=== PATIENT | male | born 1960 | race Caucasian/White ===

== ENCOUNTER 2020-05-24 06:31 | Outpatient (REF) | payer OTHER, SELFPAY ==
[2020-05-24 11:44] LABS: Alanine Aminotransferase 23 U/L (0-40); Aspartate Amino Transferase 18 U/L (5-37); Cholesterol 126 mg/dL; HDL Cholesterol 46 mg/dL; LDL Cholesterol Calculated 63 mg/dl; Triglycerides 88 mg/dL
== END 2020-05-24 06:32 | disposition home or self-care (01) ==
LOC: HO.HMGCLDS 06:31
PROVIDERS: PCP Internal Medicine; Visit Provider Internal Medicine Cardiovascular Disease
DX: E78.2 Mixed hyperlipidemia (principal)
CPT/HCPCS: 80061; 84450; 84460

== ENCOUNTER 2023-04-26 09:24 | Outpatient (AMB) | payer OTHER, SELFPAY ==
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
[2023-04-26 10:43] VITALS: BP 120/70; PULSE 66; TEMP 36.6; O2SAT 96
== END 2023-04-26 11:26 | disposition home or self-care (01) ==
PROVIDERS: PCP Internal Medicine; Visit Provider Physician Assistant Medical
DX: S49.91XA Unspecified injury of right shoulder and upper arm, initial encounter (principal)
CPT/HCPCS: 99213

== ENCOUNTER 2023-04-26 10:59 | Outpatient (REF) | payer OTHER, SELFPAY ==
--- NOTE | ~2023-04-26 | XR_ITS ---
EXAMINATION: XR SHOULDER, RIGHT CLINICAL INFORMATION: Right shoulder pain. COMPARISON: None available. TECHNIQUE: AP external rotation, Grashey, scapular Y views of the right shoulder. FINDINGS: Decreased bone mineralization. Hypertrophic changes of the acromioclavicular joint. There is loss of the subacromial joint space. Superior subluxation of the humeral head relative to the glenoid with mild glenohumeral joint space narrowing and marginal osteophytes. No abnormal soft tissue calcifications. No displaced fracture or dislocation. XR/XR shoulder RT min 2V IMPRESSION: Subacromial joint space narrowing suggestive of rotator cuff pathology. Mild osteoarthritis of the right shoulder.
== END 2023-04-26 11:00 | disposition home or self-care (01) ==
LOC: HO.HMGCX 10:59
PROVIDERS: Visit Provider Physician Assistant Medical
DX: M25.511 Pain in right shoulder (principal)
CPT/HCPCS: 73030

== ENCOUNTER 2023-05-08 13:44 | Outpatient (AMB) | payer OTHER, SELFPAY ==
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
[2023-05-08 13:50] VITALS: BMI 27.2
== END 2023-05-08 14:13 | disposition home or self-care (01) ==
PROVIDERS: PCP Internal Medicine; Visit Provider Orthopaedic Surgery
DX: M25.511 Pain in right shoulder (principal)
CPT/HCPCS: 99202

== ENCOUNTER → 2023-05-08 13:44 | Outpatient (BNVA) | payer OTHER, SELFPAY | PROVIDERS: PCP Internal Medicine; Visit Provider Orthopaedic Surgery ==

== ENCOUNTER 2024-07-15 06:50 | Outpatient (REF) | payer OTHER, SELFPAY ==
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
--- OUTSIDE RECORDS SUMMARY | 2024-07-15 06:57 | XMS_ITS | Encounter Summary ---
Author Organization [facility] Address [address] [place] [address] Care Team Providers Care [employer] Weaver Name Role Phone Leo Garcia MD Primary Care Provider [phone] Reason for Referral * Imaging (Routine) - Pending Review Specialty Diagnoses / Procedures Referred By Elvira tejeda Referred To Contact Cardiology Diagnoses Hyperlipidemia, unspecified hyperlipidemia type Coronary artery disease involving [place] river coronary artery of [place] river heart, unspecified whether angina present Ischemic cardiomyopathy Procedures Transthoracic echocardiogram (TTE) complete with PRN contrast, bubble, strain, and 3D order panel VT TTE W 2D IMAGE COMPLETE W DOPPLER ECHO & COLOR FLOW DOPPLER ECHO VT FAYE 2D COMPLETE W/CONTRAST OR W & WO CONTRAST WITH DOPPLER Thien Stein NP [address] [place] [address] [facility] Referral ID Status Reason Start Date Expiration Date V isits Requested Visits Authorized [id number] Pending Review 07/14/2024 07/14/2025 1 1 Reason for Visit * Reason Comments Follow-up Encounter Details Date Type Department Care Team (Late st Contact Info) Description 07/14/2024 11:10 AM EST Office Visit [facility] [address] [facility] [address] [place] [address] Thien Stein NP [address] [place] [address] Hyperlipidemia, unspecified hyperlipidemia type (Primary Dx); Coronary artery disease involving color[place] river coronary artery of [place] river heart, unspecified whether angina present; Ischemic cardiomyopathy; HFrEF (heart failure with reduced ejection fraction) ([facility]) Social History Tobacco Use Types Packs/Day Years [...] file Not on file Not on file documented as of this encounter Last Filed Vital Signs Vital Sign Reading [...] Mass Index 27.03 07/14/2024 11:09 AM EST documented in this encounter Progress Notes * Thien Stein NP - 07/14/2024 11:10 AM ESTAssociated Problem(s): Hyperlipidemia Continue on current dose of rosuvastatin 40 [...] bubble, strain, and 3D order panel; Future * Thien Stein NP - 07/14/2024 11:10 AM ESTAssociated Problem(s): CAD (coronary artery disease) Continue on current rosuvastatin 40 mg at bedtime as well as aspirin 81 mg daily. Patient is also on metoprolol. Educated the patient to adhere to a cardiac healthy diet. Instructed to call 911 or goto the emergency room should the patient begin to experience chest pain or pressure lasting greaterthan 10 minutes does not resolve with rest. Orders: ECG 12 lead Basic metabolic panel; Future CBC and differential; Future Lipid panel with reflex to direct LDL; Future Transthoracic echocardiogram (TTE) complete with PRN contrast, bubble, strain, and 3D order panel; Future * Thien Stein NP - 07/14/2024 11:10 AM ESTAssociated Problem(s): Ischemic cardiomyopathy Will update echocardiogram. Orders: Basic metabolic panel; Future CBC and differential; Future Lipid panel with reflex to direct LDL; Future Transthoracic echocardiogram (TTE) complete with PRN contrast, bubble, strain, and 3D order panel; Future * Thien Stein NP - 07/14/2024 11:10 AM EST Images from the original note were not included. [facility] PRIMARY NODULIZER: Sulma Khalil MD PCP: Leo Garcia MD HPI: Zev Carlos is a 64 y.o. old male who presents for cardiac follow-up of: 1. HFrEF 2. CAD 3. Hypertension 4. Hyperlipidemia He also has a past medical history significant for hypothyroidism. He is an avid biker. Months bikes twice a week 12 to 15 miles each session. At previous appointment he said that when he [place], he initially struggles a little bit of some fatigue and shortness of breath but is able to work through it. He goes to the gym the other 2 days of the week. The patient presents today for routine cardiac follow-up. This is the first patient visit to the office in about 1.5 years. He is still very active during the day, he reports that he does mountain biking almost every day, often 10 to 20 miles. He does also have a road bike that he utilizes and takes his dog for walks during the day. He denies any chest discomfort, or shortness of breath, but he does feel that it takes him a little while to get going when he first starts exercising. He does report that this last only a few minutes and he is able to push through. Denies any falls. Denies any recent hospitalizations for cardiac reasons. Of note he has not had a PCP for the past several years and so has not had labs drawn in over a year. Denies chest pain, pressure, shortness of breath, dyspnea exertion, dizziness, lightheadedness, presyncope or syncope. The patient denies palpitations, peripheral edema, abdominal distention, PND or orthopnea. There have been no falls or cardiac related hospitalizations since the last office visit. ACTIVE MEDICATIONS: Outpatient Medications Marked as Taking for the 07/14/24 encounter (Office Visit) with Thien Stein NP Medication Sig Dispense Refill aspirin 81 mg EC tablet Take 81 mg by mouth daily. BIOFLAVONOID, LEMON, BULK, MISC 1,000 mg 2 (two) times a day. coenzyme Q-10 10 mg capsule Take by mouth. radhames, Zingiber officinalis, 250 mg capsule Take 1 tablet by mouth 1 (one) time each day. glucosamine/chondro villatoro A/C/Mn (GLUCOSAMINE-CHONDROITIN COMPLX ORAL) Take by mouth. losartan (COZAAR) 25 mg tablet TAKE 1 TABLET BY MOUTH EVERY DAY 90 tablet 1 lysine 1,000 mg tablet Take 1 tablet (1,000 mg total) by mouth 3 (three) times a day. metoprolol tartrate (LOPRESSOR) 25 mg tablet Take 1 tablet (25 mg total) by mouth 2 (two) times a day. multivitamin (MULTIPLE VITAMINS ORAL) Take by mouth. rosuvastatin (CRESTOR) 40 mg tablet TAKE 1/2 TABLET (20 MG TOTAL) BY MOUTH EVERY DAY. 45 tablet 1 turmeric root extract 500 mg capsule Take 1 tablet by mouth 1 (one) time each day. VINPOCETINE, BULK, MISC 60 mg 2 (two) times a day. vitamin E, dl,tocopheryl acet, (vitamin E, dl, acetate,) 180 mg (400 unit) capsule Take 1 capsule (400 Units total) by mouth 1 (one) time each day. PAST MEDICAL HISTORY: Patient Active Problem List Diagnosis Atypical squamoproliferative skin lesion CAD (coronary artery disease) Gout Hernia, inguinal, left Hyperlipidemia Ischemic cardiomyopathy Meniere's disease Spermatocele Testicular fracture ALLERGIES: No Known Allergies SOCIAL HISTORY: Social History Tobacco Use Smoking status: Former Current packs/day: 0.00 Types: Cigarettes Quit date: 06/10/1979 Years since quittin.1 Smokeless tobacco: Never Substance Use Topics Alcohol use: Yes Comment: occasional beer a couple times weekly PHYSICAL EXAM: Vitals: 07/14/24 1109 BP: (!) 162/82 BP Location: Left arm Patient Position: Sitting BP Cuff Size: Adult Pulse: 57 SpO2: 96% Weight: 87.9 kg (193 lb 12.8 oz) Height: 1.803 m (71 ) Physical Exam Constitutional: General: He is not in acute distress. HENT: Head: Normocephalic. Right Ear: External ear normal. Left Ear: External ear normal. Nose: Nose normal. Eyes: Conjunctiva/sclera: Conjunctivae normal. Neck: Vascular: No carotid bruit. Cardiovascular: Rate and Rhythm: Normal rate and regular rhythm. Pulses: Normal pulses. Heart sounds: Normal heart sounds. No murmur heard. No friction rub. No gallop. Pulmonary: Effort: Pulmonary effort is normal. Breath sounds: Normal breath sounds. No wheezing, rhonchi or rales. Chest: Chest wall: No tenderness. Abdominal: General: There is no distension. Musculoskeletal: General: No swelling or tenderness. Cervical back: Neck supple. Right lower leg: No edema. Left lower leg: No edema. Skin: General: Skin is warm and dry. Neurological: General: No focal deficit present. Mental Status: He is alert and oriented to person, place, and time. Psychiatric: Mood and Affect: Mood normal. Behavior: Behavior normal. Thought Content: Thought content normal. Judgment: Judgment normal. EKG: No results found for this or any previous visit (from the past 4464 hour(s)). TESTING: ASSESSMENT/PLAN: Assessment & Plan Hyperlipidemia, unspecified hyperlipidemia type Continue on current dose of rosuvastatin 40 [...] bubble, strain, and 3D order panel; Future Coronary artery disease involving [place] coronary artery of [place] heart, unspecified whether angina present Continue on current rosuvastatin 40 mg at bedtime as well as aspirin 81 mg daily. Patient is also on metoprolol. Educated the patient to adhere to a cardiac healthy diet. Instructed to call 911 or goto the emergency room should the patient begin to experience chest pain or pressure lasting greaterthan 10 minutes does not resolve with rest. Orders: ECG 12 lead Basic metabolic panel; Future CBC and differential; Future Lipid panel with reflex to direct LDL; Future Transthoracic echocardiogram (TTE) complete with PRN contrast, bubble, strain, and 3D order panel; Future Ischemic cardiomyopathy Will update echocardiogram. Orders: Basic metabolic panel; Future CBC and differential; Future Lipid panel with reflex to direct LDL; Future Transthoracic echocardiogram (TTE) complete with PRN contrast, bubble, strain, and 3D order panel; Future HFrEF (heart failure with reduced ejection fraction) (CMS/HCC) Patient appears euvolemic on exam today. I am going to upgrade an echocardiogram. I am also going to get an updated lipid panel, CBC, BMP as the patient does not have a PCP and has not had those labsupdated in over a year. There is room to improve the GDMT, however I would like to see these lab values first. Patient is hypertensive at the appointment today, but he says this is unusual he is going to take his blood pressure for the next several days and report to the office with they are. Will assist us in 1 GDMT to initiate. I think that the first change we should make initially if the patient insurance covers or if he is able to afford it would be to switch him off the losartan to a Entresto and then to initiate SGLT2 inhibitor. Thank you for allowing us to participate in the care of this patient. The patient will follow up in6 months, sooner PRN. As per AHA guidelines and previously established plan of care by Dr. Sulma Khalil MD, we discussedthe following today: 1. Hyperlipidemia, unspecified hyperlipidemia type 2. Coronary artery disease involving [place] coronary artery of [place] heart, unspecified whether angina present 3. Ischemic cardiomyopathy 4. HFrEF (heart failure with reduced ejection fraction) ([facility]) [facility] documented in this encounter Plan of Treatment Upcoming Encounters Date Type Department Care Team (Late st Contact Info) Description 09/22/2024 8:00 AM EDT Ancillary Procedure [facility] Cardiology [facility] [address] [place] [address] 01/21/2025 8:40 AM EDT Office Visit [facility] [address] [place] [address] Thien Stein NP [address] [place] [address] Scheduled Orders Name Type Priority Associated Diagnoses Orde r Schedule Basic metabolic panel Lab Routine Hyperlipidemia, unspecified hyperlipidemia type Coronary artery disease involving [place] coronary artery of [place] heart, unspecified whether angina present Ischemic cardiomyopathy Expected: 07/14/2024, Expires: 07/14/2025 CBC and differential Lab Routine Hyperlipidemia, unspecified hyperlipidemia type Coronary artery disease involving [place] coronary artery of [place] heart, unspecified whether angina present Ischemic cardiomyopathy 1 Occurrences starting 07/14/2024 until 07/14/2025 Lipid panel with reflex to direct LDL Lab Routine Hyperlipidemia, unspecified hyperlipidemia type Coronary artery disease involving [place] coronary artery of [place] heart, unspecified whether angina present Ischemic cardiomyopathy 1 Occurrences starting 07/14/2024 until 07/14/2025 Transthoracic echocardiogram (TTE) complete with PRN contrast, bubble, strain, and 3D order panel Echocardiography Routine Hyperlipidemia, unspecified hyperlipidemia type Coronary artery disease involving [place] coronary artery of [place] heart, unspecified whether angina present Ischemic cardiomyopathy 1 Occurrences starting 07/14/2024 until 07/14/2025 documented as of this encounter Procedures Procedure Name Priority Date/Time Associated Diagnosis Comments ECG 12-LEAD Routine 07/14/2024 11:57 AM EST Coronary artery disease involving [place] river coronary artery of [place] heart, unspecified whether angina present documented in this encounter Results * ECG 12 lead (07/14/2024 11:57 AM EST) 07/14/2024 11:1 3 AM EST Thien Stein NP ECG ORDERABLES VICENTE documented in this encounter Visit Diagnoses Diagnosis Hyperlipidemia, unspecified hyperlipidemia type- Primary Coronary artery disease involving [place] coronary artery of [place] heart, unspecified whether angina present Ischemic cardiomyopathy Other specified forms of chronic ischemic heart disease HFrEF (heart failure with reduced ejection fraction) ([facility]) documented in this encounter Discontinued Medications Medication Sig Discontinue Reason Start Date End Da te allopurinoL (ZYLOPRIM) 100 mg tablet Take 100 mg by mouth daily. Prescriber Discontinued 07/14/2024 levothyroxine (SYNTHROID, LEVOTHROID) 75 mcg tablet Take 1 tablet (75 mcg total) by mouth 1 (one) time each day. Prescriber Discontinued 07/14/2024 documented as of this encounter Historical Medications * This list may reflect changes made after this encounter. Medication Sig Dispensed Refills Start Date End Date vitamin E, dl,tocopheryl acet, (vitamin E, dl, acetate,) 180 mg (400 unit) capsule Take 1 capsule (400 Units total) by mouth 1 (one) time each day. VINPOCETINE, BULK, MISC 60 mg 2 (two) times a day. ascorbic acid (VITAMIN C) 1,000 mg tablet Take 1 tablet (1,000 mg total) by mouth 2 (two) times a day. BIOFLAVONOID, LEMON, BULK, MISC 1,000 mg 2 (two) times a day. lysine 1,000 mg tablet Take 1 tablet (1,000 mg total) by mouth 3 (three) times a day. added in this encounter Care Teams [employer] Relationship Specialty Start Date End Date Leo Garcia MD [address] [place] [id number] PCP - General Internal Medicine 07/08/24 documented as of this encounter
[2024-07-15 09:51] LABS: MANUAL DIFF FLAG NO
[2024-07-15 09:57] LABS: Basophils Absolute Auto 0.1 X10*3/uL (0.0-0.2); Basophils Percent Auto 0.9 % (0-2); Eosinophils Absolute Auto 0.3 X10*3/uL (0.0-0.4); Eosinophils Percent Auto 5.2 % (0-4); Hematocrit 42.2 % (42.0-52.0); Hemoglobin 14.5 g/dl (14.0-18.0); Imm Gran Abs Auto 0.03 X10*3/uL (0.00-0.03); Imm Gran Pct Auto 0.5 % (0.0-0.4); Lymphocytes Absolute Auto 1.8 X10*3/uL (1.2-4.9); Lymphocytes Percent Auto 27.8 % (20-40); Mean Corpuscular HGB Conc 34.4 g/dl (31.0-36.0); Mean Corpuscular Hemoglobin 29.6 pg (27.0-33.0); Mean Corpuscular Volume 86.1 fL (80.0-98.0); Mean Platelet Volume 12.4 fL (9.4-12.4); Monocytes Absolute Auto 0.7 X10*3/uL (0.1-1.2); Monocytes Percent Auto 11.2 % (2-11); Neutrophils Absolute Auto 3.5 x10*3/uL (2.0-8.3); Neutrophils Percent Auto 54.4 % (45-73); Platelet Count 229 X10*3/uL (160-400); Red Cell Distribution Width 12.6 % (11.0-16.0); White Blood Count 6.5 X10*3/uL (4.8-10.8)
[2024-07-15 10:09] LABS: Anion Gap 11 (12-20); Blood Urea Nitrogen 18 mg/dL (9-16); Calcium 9.4 mg/dL (8.4-10.2); Carbon Dioxide 25 mmol/L (22-29); Chloride 105 mmol/L (96-108); Cholesterol 121 mg/dL (<200); Estimated Glomerular Filt Rate > 60; Glucose Random 82 mg/dL (60-115); HDL Cholesterol 40 mg/dL (>40); LDL Cholesterol Calculated 61 mg/dL (<100); Potassium 3.7 mmol/L (3.3-5.1); Sodium 137 mmol/L (135-145); Triglycerides 103 mg/dL (<150)
[2024-07-15 11:25] LABS: Reflex LDLD? No
== END 2024-07-15 06:51 | disposition home or self-care (01) ==
LOC: HO.HMGCLDS 06:50
PROVIDERS: Visit Provider Nurse Practitioner Primary Care
DX: E78.5 Hyperlipidemia, unspecified (principal); I25.10 Atherosclerotic heart disease of native coronary artery without angina pectoris; I25.5 Ischemic cardiomyopathy; I10 Essential (primary) hypertension
CPT/HCPCS: 36415; 80048; 80061; 85025

== ENCOUNTER 2025-05-28 07:23 | Outpatient (REF) | payer OTHER, SELFPAY ==
--- OUTSIDE RECORDS SUMMARY | 2025-05-28 07:26 | XMS_ITS | Encounter Summary ---
[facility] [place] [address] Care Team Providers Care Beam Racker Name Role Phone Unavailable Primary Care Provider Unavailabl e Reason for Visit * Reason Onset Date Comments Prior Auth 05/18/2025 sacubitriL-valsa rtan (ENTRESTO) 49-51 mg per tab Encounter Details Date Type Department Care Team (Late st Contact Info) Description 05/18/2025 Telephone [facility] - [facility] [address] [facility] [address] [place] [address] Sulma Khalil MD [address] [place] [address] [place] [address] Social History Tobacco Use Types Packs/Day Years Used Date Smoking Tobacco: Former Cigarettes 1 Q uit: 06/10/1979 Smokeless Tobacco: Never Alcohol Use Standard Drinks/Week Comments Yes 0 (1 standard drink = 0.6 oz pure alcohol) occasional beer a couple times weekly Sex and Gender Information Value Date Recorded Sex Assigned at Not on file Legal Sex Male 11:14 AM EST Gender Identity Not on file Sexual Orientation Not on file documented as of this encounter Progress Notes * Lashell Sears - 05/19/2025 11:09 AM EST Images from the original note were not included. sacubitriL-valsartan (ENTRESTO) 49-51 mg per tablet-submitted through [facility] * Lashell Sears - 05/18/2025 12:58 PM EST Good Afternoon, Patients insurance is requesting a prior auth for sacubitriL- valsartan 49-51mg. Renee please complete the note from yesterdays visit so I can submit it for clinical review. I will be unable to request a prior auth without the note. Thank you documented in this encounter Plan of Treatment Not on file documented as of this encounter Visit Diagnoses Not on filedocumented in this encounter
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
--- OUTSIDE RECORDS SUMMARY | 2025-05-28 07:26 | XMS_ITS | Encounter Summary ---
Author Organization [facility] [place] [address] Care Team Providers Care Cpo Name Role Phone Unavailable Primary Care Provider Unavailabl e Encounter Details Date Type Department Care Team (Late st Contact Info) Description 05/18/2025 Telephone [facility] [address] [facility] [address] [place] [address] Sulma Kahlil MD [address] [place] [address] [place] [id number] Social History Tobacco Use Types Packs/Day Years [...] on file documented as of this encounter Ordered Prescriptions Prescription Sig Dispense Quantity Refills Last Filled Start Date End Date enoxaparin (LOVENOX) 80 mg/0.8 mL syringe Inject 0.8 mL (80 mg total) under the skin every 12 (twelve) hours for 4 doses. Please start 2 days prior to cath-after discontinuation of eliquis. 4 each 5 05/20/20 25 documented in this encounter Progress Notes * Shayy Gonzalez - 05/27/2025 10:07 AM EST Please schedule cath follow-up for 3 to 4 weeks from 06/04/[address] Rodríguez I have informed patientthey will receive this in the mail from our office. Thank you * Shayy Gonzalez - 05/27/2025 10:04 AM EST I received confirmation from [facility] Cardiac Cath ? PCI scheduled 06/04/25 arrival at 9:30 am procedure at 10:30 am. I reviewed with patient, and gave pre cath instructions. * Shayy Gonzalez - 05/24/2025 1:51 PM EST Spoke to patient to schedule cardiac cath, faxed worksheet to access. Will contact patient once confirmed and go over instructions. Patient aware of plan and will await my call. * Shayy Gonzalez - 05/20/2025 9:42 AM EST Please obtain PA for L. Heart cath ? PCI [id number] and [id number] at [facility] with Dr Rodríguez .DX I25.5. Thank you * Sulma Khalil MD - 05/18/2025 5:41 PM EST Patient needs LHC at [facility] Left heart catheterization: Diagnosis: Ischemic cardiomyopathy Anticoagulation: No Diabetic: No Dialysis: No Lovenox needed: yes-pt has LV thrombus so needs bridging; pt aware I am writing a script for 4 doses of lovenox to be given at 1mg/kg bid dosing. Contrast Allergy: No Hydration needed: No Premedication needed: No documented in this encounter Plan of Treatment Not on file documented as of this encounter Visit Diagnoses Not on filedocumented in this encounter
--- OUTSIDE RECORDS SUMMARY | 2025-05-28 07:26 | XMS_ITS | Patient Health Record ---
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 Role Phone Leo Garcia Primary Care Provider Unavailelzbieta e Black, Edna Unavailable [phone] Allergies No Known Allergies Reason For Referral No Information Medications Medication SIG (Take, Route, Frequency, Duration) Notes Start Date End Date Status Walking Boot/Pneumatic As directed Wear Daily; Duration: Until further notice 09/29/2021 Active Co Q 10 100 MG as directed Orally Active Doxycycline Monohydrate 100 MG 1 capsule Orally Once a day; Duration: 10 day(s) Not-Taking Levothyroxine Sodium 100 MCG 1 tablet in the morning on an empty stomach Orally Once a day; Duration: 30 day(s) Active Ibuprofen 800 MG 1 tablet with food o r milk as needed Orally every 6 hrs; Duration: 14 days 09/11/2021 Not-Taking Losartan Potassium 25 MG 1 tablet Orally Once a day; Duration: 30 day(s) Active Gabapentin 300 MG 1 capsule Orally at bedtime; Duration: 14 days 09/11/2021 Not-Taking Glucosamine Chondr 500 Complex - as directed Orally Active Augmentin 500-125 MG 1 tablet Orally silverio ry 8 hrs; Duration: 7 day(s) 08/24/2021 Not-Taki ng Indomethacin 50 MG 1 capsule with food or milk Orally Twice a day; Duration: 30 day(s) Not-Taking Acetaminophen Extra Strength 500 MG 1 tablet as needed Orally every 6 hrs; Duration: 10 days 09/11/2021 Not-Taking Bactrim DS 800-160 MG 1 tablet Orally Tw ice a day; Duration: 10 day(s) Not-Taking Bea-D 24 Hour Ac tive Silvadene 1 % 1 application Externally Once a day; Duration: 30 days 08/24/2021 Not-Taking Metoprolol Tartrate 25 MG 1 tablet with food Orally Twice a day; Duration: 30 day(s) Active Rosuvastatin Calcium 20 MG 1 tablet Orally Once a day; Duration: 30 day(s) Active Allopurinol 100 MG 1 tablet Orally Once a day; Duration: 30 day(s) Active Colchicine 0.6 MG 1 tablet Orally carli y; Duration: 7 days 09/11/2021 Not-Taking Aspirin 81 MG 1 tablet Orally Once a day; Duration: 30 day(s) Active Social History Tobacco Use: Social History Observation Description Date Details (start date - stop date) Former Smoker NA - 06/10/1997 Tobacco Use/Smoking Question Answer Notes Are you a: former smoker When did you stop smoking? 06/10/1997 Alcohol Screen Question Answer Notes Did you have a drink contain ing alcohol in the past year? Yes How often did you have a dri nk containing alcohol in the past year? 2 to 3 times a week (3 points) How many drinks did you have on a typical day when you were drinking in the past year? 1 or 2 drinks (0 point) Points 3 Interpretation Negative Tobacco use other than smoking: Question Answer Notes Are you an other tobacco user? 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) Active confirmed Plan Of Treatment Pending Test Test Name Order Date *Wound Culture 08/11/2021 [id number] SKIN/TISSUE 08/11/2021 Insurance Providers Payer Name Payer Address Payer Phone Subscriber Number Group Number Insured Name Patient Relationship to Insured Coverage Start Date Coverage End Date [facility] [address] [place] [address] [id number] Zev Cárdenas Self - patient is the insured Medical (General) History Medical History History ICD Code Chicken pox Measles Mumps Hypertension Hyperlipidemia Heart attack Menieres disease Hearing loss Gout Polymyalgia rheumatica Hypothyroidism Surgical History Surgery Date(Month/Year) cardiac stent 09/21/2010 [facility] [place] 07/1998
[2025-05-28 10:09] LABS: MANUAL DIFF FLAG NO
[2025-05-28 10:18] LABS: Hematocrit 43.1 % (42.0-52.0); Hemoglobin 14.7 g/dl (14.0-18.0); Imm Gran Abs Auto 0.02 X10*3/uL (0.00-0.03); Imm Gran Pct Auto 0.3 % (0.0-0.4); Lymphocytes Absolute Auto 1.8 X10*3/uL (1.2-4.9); Mean Corpuscular HGB Conc 34.1 g/dl (31.0-36.0); Mean Corpuscular Hemoglobin 29.3 pg (27.0-33.0); Mean Corpuscular Volume 85.9 fL (80.0-98.0); NRBC Abs Auto 0.000 X10*3/uL (0.0-0.012); NRBC Pct Auto 0.0 /100WBC (0.0-0.2); Platelet Count 250 X10*3/uL (160-400); Red Blood Count 5.02 X10*6/uL (4.60-5.80); White Blood Count 5.9 X10*3/uL (4.8-10.8)
[2025-05-28 10:25] LABS: INTERNATIONAL NORM RATIO 1.0 (0.9-1.1); Prothrombin Time 12.5 SEC (11.2-13.5)
[2025-05-28 11:07] LABS: Anion Gap 11 (12-20); Blood Urea Nitrogen 21 mg/dL (9-16); Calcium 9.5 mg/dL (8.4-10.2); Carbon Dioxide 26 mmol/L (22-29); Chloride 106 mmol/L (96-108); Estimated Glomerular Filt Rate > 60; Potassium 4.4 mmol/L (3.3-5.1); Sodium 139 mmol/L (135-145)
== END 2025-05-28 07:24 | disposition home or self-care (01) ==
LOC: HO.HMGCLDS 07:23
PROVIDERS: PCP Internal Medicine; Visit Provider Internal Medicine Cardiovascular Disease
DX: I25.5 Ischemic cardiomyopathy (principal)
CPT/HCPCS: 36415; 80048; 85025; 85610